=== PATIENT | female | born 1955 | race Caucasian/White ===

== ENCOUNTER 2017-05-29 11:05 | Day surgery (SDC) | payer MEDICAID ==
[~2017-05-29] VITALS: Ht 152.4 cm; Wt 45.9 kg
[~2017-05-29 11:05] MED LIST: C,E,1CAP PO; CA/D1TAB7 PO
[2017-05-29] MEDS ORDERED: LIDOCAINE HCL/PF 2% 5 ML VIAL IM ONE (11:06)
[2017-05-29] MEDS ORDERED: SODIUM CHLORIDE 0.9% 1,000 ML IV ONE ×2 (11:21→11:30)
== END 2017-05-29 15:30 | disposition home or self-care (01) ==
LOC: SURGERY 11:05
PROVIDERS: ATTEND Internal Medicine Gastroenterology
DX: K44.9 Diaphragmatic hernia without obstruction or gangrene (principal); K31.7 Polyp of stomach and duodenum; K29.60 Other gastritis without bleeding; M81.0 Age-related osteoporosis without current pathological fracture; G89.29 Other chronic pain; Z72.89 Other problems related to lifestyle; Z98.890 Other specified postprocedural states; Z87.891 Personal history of nicotine dependence
CPT/HCPCS: 43239; J3490; J7030; 88305; 88312